=== PATIENT | male | born 1985 | race Hispanic/Latino ===

== ENCOUNTER 2018-02-26 17:20 | Emergency (ER) | payer SELFPAY ==
[2018-02-26 17:33] VITALS: BP 138/76
--- NOTE | 2018-02-26 19:59 | Emergency Department Report ---
ED Abdominal Pain HPI - General Chief Complaint: Abdominal Pain Stated Complaint: CONSTIPATION Time Seen by Provider: 02/26/18 19:57 Source: patient, family Mode of arrival: Ambulatory Limitations: No Limitations - History of Present Illness Initial Comments: Patient reported that he is constipated and he has not been able to have a bowel movement for the last 3 days. He said that on he went to the bathroom but hard stool came out very small amount. Denies any abdominal pain. He is reporting pain to his rectal area and he said there is something hanging out of his rectum. Denies any rectal bleeding. Denies any urinary burning frequency or urgency. Denies any nausea or vomiting. Denies any fever or chills. MD Complaint: other (rectal pain at 9 out of 10) Onset/Timin -: days(s) Radiation: other (rectal) Migration to: no migration Severity: severe Severity scale (0 -10): 9 Quality: dull Consistency: intermittent Improves With: nothing Worsens With: bowel movement, movement, other (sitting ) Context: other (port hemorrhoids and constipation) Associated Symptoms: constipation. denies: nausea, vomiting, diarrhea, fever, chills, dysuria, hematemesis, hematochezia, melena, hematuria, anorexia, syncope - Related Data Previous Rx's Medication Instructions Recorded Last Taken Type Bisacodyl [Dulcolax suppos] 10 mg OK QDAY 2 Days #2 supp.rect 02/26/18 Unknown Rx Hydrocortisone [Anusol-Hc] 30 gm RC BID PRN #1 cream..g. 02/26/18 Unknown Rx Magnesium Citrate [Citrate of 300 ml PO ONCE 1 Days #1 solution 02/26/18 Unknown Rx Magnesia] Allergies Allergy/AdvReac Type Severity Reaction Status Date / Time No Known Allergies Allergy Unverified 02/26/18 17:30 ED Review of Systems ROS: Stated complaint: CONSTIPATION Other details as noted in HPI Comment: All other systems reviewed and negative Constitutional: no symptoms reported Respiratory: no symptoms reported Cardiovascular: denies: chest pain, palpitations, dyspnea on exertion, edema, syncope, paroxysmal nocturnal dyspnea Gastrointestinal: constipation. denies: abdominal pain, nausea, vomiting, diarrhea, hematemesis, melena, hematochezia Genitourinary: other (hemorrhoids). denies: urgency, dysuria, frequency, hematuria, discharge, testicular pain, testicular mass Musculoskeletal: denies: back pain, joint swelling, arthralgia, myalgia Skin: denies: rash Neurological: denies: headache, weakness, numbness, paresthesias, confusion, abnormal gait, vertigo ED Past Medical Hx - Past Medical History Previous Medical History?: No - Surgical History Past Surgical History?: No - Family History Family history: no significant - Social History Smoking Status: Current Every Day Smoker Substance Use Type: Alcohol - Medications Home Medications: Home Medications Medication Instructions Recorded Confirmed Last Taken Type Bisacodyl [Dulcolax suppos] 10 mg OK QDAY 2 Days #2 supp.rect 02/26/18 Unknown Rx Hydrocortisone [Anusol-Hc] 30 gm RC BID PRN #1 cream..g. 02/26/18 Unknown Rx Magnesium Citrate [Citrate of 300 ml PO ONCE 1 Days #1 solution 02/26/18 Unknown Rx Magnesia] ED Physical Exam - General Limitations: No Limitations General appearance: alert, in no apparent distress - Head Head exam: Present: atraumatic, normocephalic, normal inspection - Eye Eye exam: Present: normal appearance, PERRL, EOMI Pupils: Present: normal accommodation - ENT ENT exam: Present: normal exam, normal orophraynx, mucous membranes moist - Neck Neck exam: Present: normal inspection, full ROM. Absent: tenderness, lymphadenopathy - Respiratory Respiratory exam: Present: normal lung sounds bilaterally. Absent: respiratory distress, chest wall tenderness - Cardiovascular Cardiovascular Exam: Present: normal rhythm, tachycardia, normal heart sounds. Absent: systolic murmur, diastolic murmur - GI/Abdominal GI/Abdominal exam: Present: soft, normal bowel sounds. Absent: distended, tenderness, guarding, rebound, rigid, organomegaly, mass, bruit, pulsatile mass , hernia - Rectal Rectal exam: Present: hemorrhoids (nonthrombosed), tenderness (under the palpated hemorrhoid site) - Extremities Exam Extremities exam: Present: normal inspection, full ROM, normal capillary refill , other. Absent: tenderness, pedal edema, joint swelling, calf tenderness - Back Exam Back exam: Present: normal inspection, full ROM, other (ablated without any difficulties). Absent: tenderness, CVA tenderness (R), CVA tenderness (L), muscle spasm, paraspinal tenderness, vertebral tenderness, rash noted - Neurological Exam Neurological exam: Present: alert, oriented X3, normal gait - Psychiatric Psychiatric exam: Present: normal affect, normal mood - Skin Skin exam: Present: warm, dry, intact, normal color. Absent: rash ED Course Vital Signs 02/26/18 17:30 Temperature 98.1 F Pulse Rate 101 H Respiratory 20 Rate Blood Pressure 138/76 O2 Sat by Pulse 98 Oximetry - Reevaluation(s) Reevaluation #1: 02/26/18 22:58 stable throughout ED stay. He was given lidocaine topical to place at the hemorrhoid site ED Medical Decision Making - Lab Data Result diagrams: 02/26/18 20:05 02/26/18 20:02 Lab Results 02/26/18 02/26/18 Range/Units 20:02 20:05 WBC 7.9 (4.5-11.0) K/mm3 RBC 5.36 H (3.65-5.03) M/mm3 Hgb 16.0 H (11.8-15.2) gm/dl Hct 47.8 H (35.5-45.6) % MCV 89 (84-94) fl MCH 30 (28-32) pg MCHC 34 (32-34) % RDW 13.1 L (13.2-15.2) % Plt Count 205 (140-440) K/mm3 Lymph % (Auto) 27.2 (13.4-35.0) % Guthrie % (Auto) 5.5 (0.0-7.3) % Eos % (Auto) 2.3 (0.0-4.3) % Baso % (Auto) 1.1 (0.0-1.8) % Lymph # 2.1 (1.2-5.4) K/mm3 Guthrie # 0.4 (0.0-0.8) K/mm3 Eos # 0.2 (0.0-0.4) K/mm3 Baso # 0.1 (0.0-0.1) K/mm3 Seg Neutrophils % 63.9 (40.0-70.0) % Seg Neutrophils # 5.0 (1.8-7.7) K/mm3 Sodium 133 L (137-145) mmol/L Potassium 3.7 (3.6-5.0) mmol/L Chloride 96.8 L (98-107) mmol/L Carbon Dioxide 27 (22-30) mmol/L Anion Gap 13 mmol/L BUN 11 (9-20) mg/dL Creatinine 0.9 (0.8-1.5) mg/dL Estimated GFR > 60 ml/min BUN/Creatinine Ratio 12 % Glucose 132 H (75-100) mg/dL Calcium 8.6 (8.4-10.2) mg/dL Total Bilirubin 0.20 (0.1-1.2) mg/dL AST 18 (5-40) units/L ALT 17 (7-56) units/L Alkaline Phosphatase 95 (35-129) units/L Total Protein 6.6 (6.3-8.2) g/dL Albumin 4.0 (3.9-5) g/dL Albumin/Globulin Ratio 1.5 % Lipase 20 (13-60) units/L - Radiology Data Radiology results: report reviewed X-ray abdominal series revealed patient with nonspecific, nonobstructive bowel gas pattern with no acute processes noted. Extensive stool is present throughout the colon which can be associated with constipation. - Medical Decision Making ED course: Patient here complaining of rectal pain and was found to have hemorrhoids he was given topical lidocaine 5% to place that side. She's have a positive screen. Patient was also found to have constipation throughout colon via abdominal series x-ray. CBC stable except for elevation in H&H, CMP stable lipase is normal. I discussed diagnosis and treatment plan the patient and he voiced understanding. Patient discharged home with prescription for Anusol for hemorrhoids, magnesium citrate and Dulcolax suppository and to follow-up at [facility] for primary care visit in 2 days. Critical care attestation.: If time is entered above; I have spent that time in minutes in the direct care of this critically ill patient, excluding procedure time. ED Disposition Clinical Impression: External hemorrhoid Constipation Qualifiers: Constipation type: unspecified constipation type Qualified Code(s): K59.00 - Constipation, unspecified Disposition: TO HOME OR SELFCARE Is pt being admited?: No Does the pt Need Aspirin: No Condition: Stable Instructions: Hemorrhoids (ED), Constipation (ED), High Fiber Diet (ED) Additional Instructions: Please increase her fluid intake to 2-3 L of water daily. 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 Prescriptions: Bisacodyl [Dulcolax suppos] 10 mg OK QDAY 2 Days #2 supp.rect Hydrocortisone [Anusol-Hc] 30 gm RC BID PRN #1 cream..g. PRN Reason: Hemorrhoids Magnesium Citrate [Citrate of Magnesia] 300 ml PO ONCE 1 Days #1 solution Referrals: [facility] [Outside] - 02/28/18 [facility] [Provider Group] - 2-3 Days Forms: Accompanied Note, Work/School Release Form(ED)
[2018-02-26 20:18] LABS: Basophils # (Auto) 0.1 K/mm3 (0.0-0.1); Basophils % (Auto) 1.1 % (0.0-1.8); Eosinophils # (Auto) 0.2 K/mm3 (0.0-0.4); Eosinophils % (Auto) 2.3 % (0.0-4.3); Hematocrit 47.8 % (35.5-45.6); Lymphocytes # (Auto) 2.1 K/mm3 (1.2-5.4); Lymphocytes % (Auto) 27.2 % (13.4-35.0); Mean Corpuscular HGB Conc 34 % (32-34); Mean Corpuscular Hemoglobin 30 pg (28-32); Mean Corpuscular Volume 89 fl (84-94); Monocytes # (Auto) 0.4 K/mm3 (0.0-0.8); Monocytes % (Auto) 5.5 % (0.0-7.3); Platelet Count 205 K/mm3 (140-440); Red Blood Count 5.36 M/mm3 (3.65-5.03); Red Cell Distribution Width 13.1 % (13.2-15.2)
[2018-02-26 20:29] LABS: Alanine Aminotransferase 17 units/L (7-56); BUN/Creatinine Ratio 12; Blood Urea Nitrogen 11 mg/dL (9-20); Calcium 8.6 mg/dL (8.4-10.2); Hemolysis Index 17; Lipase 20 units/L (13-60)
[2018-02-26] MEDS ORDERED: XYLOCAINE TOPICAL 5% TP ONE (21:02)
--- NOTE | 2018-02-26 21:03 | XRay Report ---
FINAL REPORT EXAM: XR ABDOMEN 2V HISTORY: abdominal pain/constipation TECHNIQUE: Supine and erect views of the abdomen PRIORS: None. FINDINGS: The bowel gas pattern is nonspecific. No free air is identified. Extensive stool is present throughout the colon. Soft tissues have no evidence for mass shadows or calcifications. The bony structures are intact. IMPRESSION: Nonspecific, nonobstructive bowel gas pattern with no acute process noted. Extensive stool is present throughout the colon which can be associated constipation.
== END 2018-02-26 23:10 | disposition home or self-care (01) ==
LOC: ED 17:20
DX: K64.4 Residual hemorrhoidal skin tags (principal); F17.200 Nicotine dependence, unspecified, uncomplicated
CPT/HCPCS: 36415; 74019; 80053; 83690; 85025; 99284